=== PATIENT | male | born 1985 | race Caucasian/White ===

== ENCOUNTER 2017-09-11 20:40 | Emergency (ER) | payer BC ==
[2017-09-11 20:47] VITALS: BP 168/101; TEMP 98.5
[2017-09-11] MEDS ORDERED: AKTOB 5 ML5 ML OU (21:47)
[2017-09-11 21:53] VITALS: PULSE 86
== END 2017-09-11 22:12 | disposition home or self-care (01) ==
LOC: COL.ER 20:40
DX: S05.02XA Injury of conjunctiva and corneal abrasion without foreign body, left eye, initial encounter (principal); H10.9 Unspecified conjunctivitis; X58.XXXA Exposure to other specified factors, initial encounter

== ENCOUNTER → 2021-06-13 | Outpatient (CLI) | payer OTHER ==
[~2021-06-13] MED LIST: AKTOB 5 ML5 ML OU
[2021-06-13 14:17] LABS: HEMATOCRIT 47.7 % (42.0-52.0); HEMOGLOBIN 15.7 g/dl (13.5-18.0); MEAN CELL VOLUME 84 fl (80.0-100.0); MEAN CORPUSCULAR HEMOGLOBIN 28 pg (27-31); MEAN CORPUSCULAR HGB CONC 33 g/dl (33.0-37.0); MEAN PLATELET VOLUME 10.5 fl (7.4-10.4); PLATELET COUNT 310 K/mm3 (130-400); RED BLOOD COUNT 5.67 M/mm3 (4.20-5.60); REDCELL DISTRIBUTION WIDTH-CV 12.5 % (11.5-14.5)
[2021-06-13 14:34] LABS: ALBUMIN 4.9 gm/dL (3.5-5.0); BILIRUBIN,TOTAL 0.8 mg/dL (0.2-1.2); CALCIUM 10.1 mg/dL (8.4-10.2); CREATININE, serum 1.15 mg/dL (0.72-1.25); POTASSIUM 4.6 mmol/L (3.5-4.5); TOTAL PROTEIN 7.9 gm/dL (6.2-8.1)
[2021-06-13 15:23] LABS: LYMPHOCYTE 2 % (20.0-51.0); NEUTROPHILS 95 % (42.0-75.2)
[2021-06-13 15:24] LABS: HYPOCHROMIA 1+; PLATELET ESTIMATE NORMAL (NORMAL)
== END ==
LOC: COL.RAD 13:19
PROVIDERS: Family Medicine
DX: K76.0 Fatty (change of) liver, not elsewhere classified (principal); N13.30 Unspecified hydronephrosis; N20.1 Calculus of ureter

== ENCOUNTER 2021-06-14 18:27 | Observation (INO) | payer OTHER ==
[2021-06-14 20:00] VITALS: BP 157/82; PULSE 74
[2021-06-14 20:40] VITALS: BP 157/82; PULSE 74; TEMP 98.8
[2021-06-14 23:10] VITALS: BP 157/87; PULSE 74; TEMP 98.7
[2021-06-15] VITALS (10 sets, daily range): BP systolic 117–155; BP diastolic 71–82; PULSE 58–74; TEMP 97.8–99
--- NOTE | 2021-06-15 00:52 | NUR ---
Patient arrived to the floor at approximately 1830. 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 Patient has been pleasant throughout the shift, A&Ox3. Full body assessment completed and vital signs WNL. Patient is to be NPO by midnight, pt at no complaints to this. Patient taking PO intake withouth difficulty. No other complaints at this time. Will continue to monitor. Call light within reach.
--- NOTE | 2021-06-15 08:20 | NUR ---
PATIENT GOING DOWN TO OR VIA BED. BLANK CONSENT ON CHART. PATIENT TO CONSULT WITH PROVIDER DOWN STAIRS PRE-OP. PRE-OP FLUIDS INFUSING. PATIENT OFF FLOOR.
--- NOTE | 2021-06-15 11:00 | NUR ---
PATIENT IS BACK IN ROOM. ORIENTED BUT VERY DROWSY POST OP. VSS. DENIES PAIN OR NAUSEA. LIQUIDS AT BEDSIDE. IV FLUIDS INFUSING INTO RIGHT FORARM IV. PATIENT SLEEPING. CALL LIGHT IN REACH. ROOM LIGHTS TURNED DOWN.
--- NOTE | 2021-06-15 14:07 | NUR ---
Travel Director met with patient, Juan, for intake assessment and discharge planning: Patient informs he lives at home with his spouse Inga mgch) and his two children ages 8 and 10. His home has 3 steps to the main floor, which he navigates independently. He states he is independent in all his ADLs and IADLs, and indicates he utilizes no durable medical equipment and has no oxygen needs. He states he sees Dr. Peng at [facility], for primary care after his former physician left the agency. He states he has been satisfied with his care, thus far. He obtains his medications at [facility], stating they are sometimes "slow" in filling his prescriptions but otherwise has no difficulty obtaining medications. He states a plan to discharge to home this afternoon, and his spouse will transport him home. 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 Patient states no interest in completing DPOA-HC paperwork this date, noting his spouse Inga in his next-of-kin. Patient identifies no further needs/concerns at this time. *Discharge plan: To home with family*
--- NOTE | 2021-06-15 14:35 | NUR ---
PATIENT'S HERE. DISCHARGE CRITERIA MET. GAVE DISCHARGE INSTRUCTIONS, DISCUSSED F/U APT, RETURN TO WORK SCRIPT, AND ANSWERED QUESTIONS/CONCERNS. PATIENT IS DRESSED, PACKED AND DISCHARGED AMBULATORY TO PERSONAL VEHICLE.
== END 2021-06-15 14:30 | disposition home or self-care (01) ==
LOC: SDCO 18:27 → SURG 18:29 → SDCO 06-15 07:50 → SURG 06-15 07:51
PROVIDERS: ADMIT Urology
DX: N20.1 Calculus of ureter (principal)
CPT/HCPCS: C1769; C2617; G0378; J0690; J1100; J1885; J1940; J2270; J2405; J2704; J3010; J7030; Q9967